=== PATIENT | male | born 1950 | race Caucasian/White ===

== ENCOUNTER 2019-04-03 15:04 | Inpatient (IN) | payer BC, OTHER ==
[~2019-04-03] VITALS: Ht 175.3 cm; Wt 99.1 kg
[2019-04-03] MEDS ORDERED: ONDANSETRON HCL 4 MG/2 ML VIAL IV ONE (16:00)
[2019-04-03] MEDS ORDERED: MORPHINE SULFATE 4 MG/ML SYR/VIAL IV ONE ×2 (16:00→20:30)
[2019-04-03 16:12] LABS: Basophils # (auto) 0.1 uL; Basophils % (auto) 0.7 % (0.0-2.0); Eosinophils # (auto) 0.3 uL; Hematocrit 41.1 % (41.0-53.0); Hemoglobin 14.1 g/dL (13.5-17.5); Lymphocytes % (auto) 15.3 % (10.0-50.0); Mean Corpuscular Hemoglobin 30.8 pg (28.0-32.0); Mean Corpuscular Hgb Conc. 34.3 g/dL (32.0-36.0); Mean Corpuscular Volume 89.7 fL (80.0-100.0); Monocytes % (auto) 7.5 % (0.0-12.0); Neutrophils # (auto) 9.8 uL; Neutrophils % (auto) 74.5 % (37.0-80.0); Platelet Count (auto) 162 10^3/uL (140-450); Red Blood Cells 4.58 10^6/uL (4.5-5.90); Red Cell Distribution Width 15.2 % (11.8-14.3); White Blood Cell 13.1 10^3/uL (4.4-10.8)
[2019-04-03 16:37] LABS: Albumin 3.4 g/dL (3.4-5.0); Anion Gap 3 (5-15); Blood Urea Nitrogen 18 mg/dL (7-18); Calcium 8.6 mg/dL (8.5-10.1); Carbon Dioxide 30 mmol/L (21-32); Chloride 105 mmol/L (98-107); Glucose 114 mg/dL (74-106); Potassium 4.7 mmol/L (3.5-5.1); Sodium 138 mmol/L (136-145)
[2019-04-03 16:43] LABS: Alanine Aminotransferase 20 U/L (16-61); Alkaline Phosphatase 74 U/L (45-117); Aspartate Aminotransferase 21 U/L (15-37); BUN/Creatinine Ratio 12.8; Bilirubin, Total 0.7 mg/dL (0.2-1.0); GFR African American 64 mL/min; GFR Non-African American 53 mL/min; INR 1.12 (0.9-1.15); Partial Thromboplastin Time 26.9 sec (23.64-32.05); Total Protein 7.6 g/dL (6.4-8.2)
[2019-04-03] MEDS ORDERED: HYDROcodone-ACET 5/325MG TAB PO PRN (21:00)
[2019-04-03] MEDS ORDERED: DEXTROSE (50%) 50ML SYRG IV PRN (21:00)
[2019-04-03] MEDS ORDERED: ACETAMINOPHEN 325 MG TAB PO PRN (21:00)
[2019-04-03] MEDS ORDERED: TEMAZEPAM 15 MG CAP PO PRN (21:00)
[2019-04-03] MEDS ORDERED: ONDANSETRON HCL 4 MG/2 ML VIAL IV PRN (21:00)
[2019-04-03 23:00] VITALS: BP 143/74
[2019-04-03] MEDS: ACCU-CHEK COMFORT CURVE STRIP VI SCH (23:55)
[2019-04-03] MEDS: InsuLIN REG 1unit/0.01ml Soln (100units/ml) SC SCH (23:55)
[2019-04-03] MEDS: FAMOTIDINE 20 MG TAB PO SCH (23:55)
[2019-04-04] MEDS: MORPHINE SULF INJ 2 MG/ML SYRINGE 1ML IV PRN ×2 (03:32→09:58)
[2019-04-04 05:00] VITALS: BP 112/58
[2019-04-04] MEDS: InsuLIN REG 1unit/0.01ml Soln (100units/ml) SC SCH ×4 (06:00→23:30)
[2019-04-04] MEDS: ACCU-CHEK COMFORT CURVE STRIP VI SCH ×4 (06:09→23:31)
[2019-04-04 07:45] LABS: Basophils # (auto) 0.1 uL; Basophils % (auto) 0.6 % (0.0-2.0); Eosinophils # (auto) 0.3 uL; Eosinophils % (auto) 3.6 % (0.0-7.0); Hematocrit 39.8 % (41.0-53.0); Hemoglobin 13.7 g/dL (13.5-17.5); Lymphocytes # (auto) 2.4 uL; Lymphocytes % (auto) 27.8 % (10.0-50.0); Mean Corpuscular Hemoglobin 31.2 pg (28.0-32.0); Mean Corpuscular Hgb Conc. 34.5 g/dL (32.0-36.0); Mean Corpuscular Volume 90.3 fL (80.0-100.0); Monocytes # (auto) 0.9 uL; Monocytes % (auto) 10.8 % (0.0-12.0); Neutrophils # (auto) 4.8 uL; Neutrophils % (auto) 57.2 % (37.0-80.0); Nucleated Red Blood Cells % 0.1 %; Platelet Count (auto) 146 10^3/uL (140-450); Red Cell Distribution Width 15.6 % (11.8-14.3); White Blood Cell 8.4 10^3/uL (4.4-10.8)
[2019-04-04 08:06] LABS: Calcium 8.6 mg/dL (8.5-10.1); Potassium 4.7 mmol/L (3.5-5.1)
[2019-04-04 08:34] VITALS: BP 125/74
[2019-04-04] MEDS: FAMOTIDINE 20 MG TAB PO SCH ×2 (09:57→23:28)
[2019-04-04] MEDS ORDERED: LORazepam 2MG/ML-1ML VIAL IV PRN (11:00)
[2019-04-04] MEDS ORDERED: THIAMINE 100mg/ml INJ (200mg/2ml VIAL) IV ONE (11:00)
[2019-04-04] MEDS ORDERED: FOLIC ACID 1 MG in D5W 5% 50 ML IV ONE (11:00)
[2019-04-04] MEDS ORDERED: MORPHINE SULF INJ 2 MG/ML SYRINGE 1ML IV PRN (11:00)
[2019-04-04] MEDS ORDERED: hydrALAZINE HCL 20 MG/ML VL IV PRN (11:00)
[2019-04-04] MEDS ORDERED: DEXTROSE (50%) 50ML SYRG IV PRN (11:00)
[2019-04-04 12:26] LABS: Urine Bacteria FEW /hpf (None Seen); Urine Blood TRACE /uL (Negative); Urine Hyaline Cast FEW /lpf (0 - 2); Urine Mucus FEW (None Seen); Urine Specific Gravity 1.026 (1.001-1.035); Urine WBC 256 /hpf (0 - 3); Urine WBC Clumps PRESENT /hpf (None Seen)
[2019-04-04] MEDS: SODIUM CHLORIDE 0.9% 1,000 ML IV SCH (12:51)
[2019-04-04 13:00] VITALS: BP 129/60
[2019-04-04] MEDS: cefTRIAXone 1GM/50ML D5W 50 ML IV SCH (16:15)
[2019-04-04 16:56] VITALS: BP 128/61
[2019-04-04] MEDS ORDERED: BUPIVACAINE 0.25% INJ 50ML VIAL ONE (17:21)
[2019-04-04] MEDS ORDERED: LIDOCAINE 1% HCL (LOCAL ANESTH.) INJ 20ML MDV ONE (17:21)
[2019-04-04] MEDS ORDERED: MIDAZOLAM HCL 1MG/1ML-2 ML VIAL ONE (17:22)
[2019-04-04] MEDS ORDERED: ROCURONIUM 10MG/ML 10ML VIAL IV ONE (17:22)
[2019-04-04] MEDS ORDERED: MORPHINE SULFATE INJECTION 1 ML ONE (17:22)
[2019-04-04] MEDS ORDERED: fentaNYL CITRATE 100 MCG/2 ML VL ONE (17:22)
[2019-04-04] MEDS ORDERED: ONDANSETRON HCL 4 MG/2 ML VIAL ONE (17:23)
[2019-04-04] MEDS ORDERED: PROPOFOL 10 MG/ML 20 ML IV ONE (17:23)
[2019-04-04] MEDS ORDERED: SODIUM CHLORIDE LOCK 10 ML ONE (17:23)
[2019-04-04] MEDS ORDERED: CLINDAMYCIN 600MG IV 50 ML IV ONE (17:24)
[2019-04-04] MEDS ORDERED: fentaNYL CITRATE 5 ML ONE (17:25)
[2019-04-04] MEDS ORDERED: MORPHINE SULFATE 4 MG/ML SYR/VIAL IV PRN (17:30)
[2019-04-04] MEDS ORDERED: HYDROmorphone HCL 2 MG/ML VL IV PRN ×2 (17:30→21:15)
[2019-04-04] MEDS ORDERED: ACCU-CHEK COMFORT CURVE STRIP VI ONE (17:30)
[2019-04-04] MEDS ORDERED: fentaNYL CITRATE 100 MCG/2 ML VL IV PRN (17:30)
[2019-04-04] MEDS ORDERED: METOCLOPRAMIDE HCL 5MG/ml INJ 2ml VIAL IV PRN (17:30)
[2019-04-04] MEDS ORDERED: IPRATROPIUM BROM 0.5 MG/2.5ML INH SOL ONE (20:40)
[2019-04-04] MEDS ORDERED: ALBUTEROL SULF 2.5 MG/0.5ML(0.5%) NEB SOLN ONE (20:40)
[2019-04-04] MEDS ORDERED: ALBUTEROL SULF 2.5 MG/0.5ML(0.5%) NEB SOLN NEB ONE (20:45)
[2019-04-04] MEDS ORDERED: IPRATROPIUM BROM 0.5 MG/2.5ML INH SOL NEB ONE (20:45)
[2019-04-04] MEDS ORDERED: DOCUSATE SOD 100 MG CAP PO PRN (21:15)
[2019-04-04] MEDS ORDERED: ONDANSETRON HCL 4 MG/2 ML VIAL IV PRN (21:15)
[2019-04-04] MEDS: CLINDAMYCIN 600MG IV 50 ML IV SCH (22:00)
[2019-04-05] MEDS: SODIUM CHLORIDE 0.9% 1,000 ML IV SCH ×2 (02:52→13:40)
[2019-04-05 05:00] VITALS: BP 141/64
[2019-04-05] MEDS: CLINDAMYCIN 600MG IV 50 ML IV SCH ×2 (06:31→14:10)
[2019-04-05] MEDS: ACCU-CHEK COMFORT CURVE STRIP VI SCH ×4 (06:32→23:20)
[2019-04-05] MEDS: InsuLIN REG 1unit/0.01ml Soln (100units/ml) SC SCH ×4 (06:32→22:00)
[2019-04-05 08:49] LABS: Basophils # (auto) 0.1 uL; Basophils % (auto) 0.8 % (0.0-2.0); Eosinophils # (auto) 0.1 uL; Eosinophils % (auto) 1.4 % (0.0-7.0); Hematocrit 35.5 % (41.0-53.0); Hemoglobin 12.4 g/dL (13.5-17.5); Lymphocytes # (auto) 1.8 uL; Lymphocytes % (auto) 19.3 % (10.0-50.0); Mean Corpuscular Hemoglobin 31.5 pg (28.0-32.0); Mean Corpuscular Hgb Conc. 34.9 g/dL (32.0-36.0); Mean Corpuscular Volume 90.3 fL (80.0-100.0); Monocytes # (auto) 1.1 uL; Monocytes % (auto) 12.1 % (0.0-12.0); Neutrophils # (auto) 6.3 uL; Neutrophils % (auto) 66.4 % (37.0-80.0); Platelet Count (auto) 142 10^3/uL (140-450); Red Blood Cells 3.94 10^6/uL (4.5-5.90); Red Cell Distribution Width 15.4 % (11.8-14.3); White Blood Cell 9.5 10^3/uL (4.4-10.8)
[2019-04-05 09:06] LABS: Albumin 2.8 g/dL (3.4-5.0); BUN/Creatinine Ratio 14.1; Calcium 8.2 mg/dL (8.5-10.1)
[2019-04-05 09:09] LABS: Bilirubin, Total 1.8 mg/dL (0.2-1.0); Total Protein 6.5 g/dL (6.4-8.2)
[2019-04-05 09:18] VITALS: BP 124/55
[2019-04-05] MEDS: FAMOTIDINE 20 MG TAB PO SCH ×2 (09:27→23:19)
[2019-04-05] MEDS: cefTRIAXone 1GM/50ML D5W 50 ML IV SCH (09:27)
[2019-04-05] MEDS: THIAMINE 100mg/ml INJ (200mg/2ml VIAL) IV SCH (09:28)
[2019-04-05] MEDS: FOLIC ACID 1 MG in D5W 5% 50 ML IV SCH (11:45)
[2019-04-05 13:00] VITALS: BP_SYST 118; BP_SYST 126; BP_SYST 127; BP_DIAS 58; BP_DIAS 66; BP_DIAS 77
[2019-04-05 17:07] VITALS: BP 124/53
[2019-04-05 22:00] VITALS: BP 123/60
[2019-04-05] MEDS: CARVEDILOL 3.125 MG TAB PO SCH (23:19)
[2019-04-05] MEDS: ATORVASTATIN 20 MG TAB PO SCH (23:19)
[2019-04-06] MEDS ORDERED: chlordiazePOXIDE HCL 25 MG CAP PO PRN (02:30)
[2019-04-06] MEDS: SODIUM CHLORIDE 0.9% 1,000 ML IV SCH ×2 (02:32→16:13)
[2019-04-06 05:00] VITALS: BP 125/56
[2019-04-06 05:53] LABS: Basophils # (auto) 0.1 uL; Basophils % (auto) 0.9 % (0.0-2.0); Eosinophils # (auto) 0.3 uL; Eosinophils % (auto) 3.1 % (0.0-7.0); Hematocrit 33.5 % (41.0-53.0); Hemoglobin 11.2 g/dL (13.5-17.5); Lymphocytes # (auto) 2.1 uL; Lymphocytes % (auto) 22.2 % (10.0-50.0); Mean Corpuscular Hemoglobin 30.4 pg (28.0-32.0); Mean Corpuscular Hgb Conc. 33.6 g/dL (32.0-36.0); Mean Corpuscular Volume 90.6 fL (80.0-100.0); Monocytes # (auto) 1.3 uL; Monocytes % (auto) 14.2 % (0.0-12.0); Neutrophils # (auto) 5.6 uL; Neutrophils % (auto) 59.6 % (37.0-80.0); Platelet Count (auto) 142 10^3/uL (140-450); Red Cell Distribution Width 15.7 % (11.8-14.3); White Blood Cell 9.3 10^3/uL (4.4-10.8)
[2019-04-06 06:07] LABS: INR 1.23 (0.9-1.15); Partial Thromboplastin Time 33.6 sec (23.64-32.05)
[2019-04-06 06:13] LABS: Albumin 2.7 g/dL (3.4-5.0); Calcium 8.2 mg/dL (8.5-10.1); Magnesium 2.3 mg/dL (1.6-2.6)
[2019-04-06 06:18] LABS: BUN/Creatinine Ratio 14.7; Bilirubin, Total 1.2 mg/dL (0.2-1.0); Phosphorus 2.4 mg/dL (2.5-4.90); Total Protein 6.5 g/dL (6.4-8.2)
[2019-04-06] MEDS: InsuLIN REG 1unit/0.01ml Soln (100units/ml) SC SCH ×3 (07:00→22:00)
[2019-04-06] MEDS: ACCU-CHEK COMFORT CURVE STRIP VI SCH ×3 (07:11→22:22)
[2019-04-06 09:00] VITALS: BP 115/86
[2019-04-06] MEDS: cefTRIAXone 1GM/50ML D5W 50 ML IV SCH (09:25)
[2019-04-06] MEDS: ASPirin 81 mg TAB PO SCH (10:59)
[2019-04-06] MEDS: FAMOTIDINE 20 MG TAB PO SCH ×2 (10:59→22:22)
[2019-04-06] MEDS: ENOXAPARIN SOD 40 MG/0.4 ML SYRINGE SC SCH (11:00)
[2019-04-06] MEDS: THIAMINE 100mg/ml INJ (200mg/2ml VIAL) IV SCH (11:00)
[2019-04-06] MEDS: CARVEDILOL 3.125 MG TAB PO SCH ×2 (11:00→22:21)
[2019-04-06] MEDS: FOLIC ACID 1 MG in D5W 5% 50 ML IV SCH (11:00)
[2019-04-06 12:30] VITALS: BP 134/64
[2019-04-06 17:29] VITALS: BP 133/64
[2019-04-06 22:00] VITALS: BP 153/72
[2019-04-06] MEDS: ATORVASTATIN 20 MG TAB PO SCH (22:21)
[2019-04-07] MEDS: SODIUM CHLORIDE 0.9% 1,000 ML IV SCH (05:36)
[2019-04-07 05:41] VITALS: BP 128/59
[2019-04-07] MEDS: ACCU-CHEK COMFORT CURVE STRIP VI SCH (06:27)
[2019-04-07] MEDS: InsuLIN REG 1unit/0.01ml Soln (100units/ml) SC SCH (06:27)
[2019-04-07 08:50] VITALS: BP 145/69
[2019-04-07] MEDS: cefTRIAXone 1GM/50ML D5W 50 ML IV SCH (08:53)
[2019-04-07] MEDS: ASPirin 81 mg TAB PO SCH (09:39)
[2019-04-07] MEDS: CARVEDILOL 3.125 MG TAB PO SCH (09:40)
[2019-04-07] MEDS: FAMOTIDINE 20 MG TAB PO SCH (09:40)
[2019-04-07] MEDS: THIAMINE 100mg/ml INJ (200mg/2ml VIAL) IV SCH (09:40)
[2019-04-07] MEDS: ENOXAPARIN SOD 40 MG/0.4 ML SYRINGE SC SCH (09:40)
[2019-04-07 12:16] VITALS: BP 145/69
[2019-04-07] MEDS ORDERED: SUCCINYLCHOLINE CHLORIDE 20 MG/ML 10ML VIAL IV ONE (13:46)
== END 2019-04-07 15:12 | disposition home health service (06) | DRG 493 ==
LOC: EDBD 15:04 → ER 15:04 → OVERFLOW 15:05 → CENTRAL 22:40 → TELE-CENTR 04-05 07:36
PROVIDERS: ADMIT Nurse Practitioner; ATTEND Internal Medicine
PROC: 0QSG06Z Reposition Right Tibia with Intramedullary Internal Fixation Device, Open Approach (ICD-10-PCS; principal; 2019-04-04 17:28)
DX: S82.201A Unspecified fracture of shaft of right tibia, initial encounter for closed fracture (principal); N39.0 Urinary tract infection, site not specified; I50.32 Chronic diastolic (congestive) heart failure; S82.401A Unspecified fracture of shaft of right fibula, initial encounter for closed fracture; W01.0XXA Fall on same level from slipping, tripping and stumbling without subsequent striking against object, initial encounter; I11.0 Hypertensive heart disease with heart failure; E11.9 Type 2 diabetes mellitus without complications; B96.20 Unspecified Escherichia coli [E. coli] as the cause of diseases classified elsewhere; E66.9 Obesity, unspecified; Z72.0 Tobacco use; Y93.89 Activity, other specified; Y92.89 Other specified places as the place of occurrence of the external cause; Y99.8 Other external cause status; Z79.82 Long term (current) use of aspirin; Z86.73 Personal history of transient ischemic attack (TIA), and cerebral infarction without residual deficits; Z65.3 Problems related to other legal circumstances; Z88.0 Allergy status to penicillin
CPT/HCPCS: 36415; 71045; 72170; 73590; 80048; 80053; 81001; 82962; 83036; 83735; 84100; 84484; 85025; 85610; 85730; 86850; 86900; 86901; 87086; 87088; 87186; 93005; 93306; 94640; 96374; 96375; 96376; 97110; 97116; 97163; 97530; G0378; J0330; J0696; J2001; J2250; J2405; J2704; J3490; J7060